=== PATIENT | female | born 1970 | race Caucasian/White ===

== ENCOUNTER → 2017-07-16 | Outpatient (CLI) | payer OTHER ==
--- NOTE | 2017-07-16 11:05 | DIAGNOSTIC IMAGING REPORT ---
CHEST 2 VIEWS ROUTINE CLINICAL HISTORY: 46 years-old Female presenting with COUGH /CHEST PAIN. TECHNIQUE: PA and lateral views of the chest were obtained. COMPARISON: 08/06/2014. FINDINGS: Cardiomediastinal silhouette normal. Lungs and pleural spaces clear. Osseous structures normal. Upper abdomen normal. IMPRESSION: 1. No acute cardiopulmonary disease. Electronically signed by: Israel London M.D. 07/16/2017 11:04 AM Dictated Date/Time: 07/16/2017 11:03 AM
== END | disposition home or self-care (01) ==
LOC: C.RAD1850 10:43
PROVIDERS: ATTEND Family Medicine
DX: R05 Cough (principal); R07.9 Chest pain, unspecified

== ENCOUNTER → 2017-07-20 | Outpatient (CLI) | payer OTHER ==
[2017-07-20 16:15] LABS: BASO % 0.1 %; BASO ABS # 0.01 K/uL (0-0.2); EOS % 0.3 %; EOS ABS # 0.05 K/uL (0-0.5); HEMATOCRIT 42.6 % (37-47); HEMOGLOBIN 14.3 g/dL (12.0-16.0); IG# 0.04 K/uL (0.00-0.02); LYMPH % 31.9 %; LYMPH ABS # 4.64 K/uL (1.2-3.4); MEAN CELL VOLUME 87.5 fL (80-100); MEAN CORPUSCULAR HEMOGLOBIN 29.4 pg (25-34); MEAN CORPUSCULAR HGB CONC 33.6 g/dl (32-36); MEAN PLATELET VOLUME 10.5 fL (7.4-10.4); MONO % 12.5 %; MONO ABS # 1.81 K/uL (0.11-0.59); NEUT % 54.9 %; NEUT ABS # 7.98 K/uL (1.4-6.5); PLATELET COUNT 370 K/uL (130-400); RED CELL DISTRIBUTION WIDTH CV 14.5 % (11.5-14.5); RED CELL DISTRIBUTION WIDTH SD 45.8 fL (36.4-46.3); WHITE BLOOD COUNT 14.53 K/uL (4.8-10.8)
== END | disposition home or self-care (01) ==
LOC: C.LAB 14:25
PROVIDERS: ATTEND Nurse Practitioner Family
DX: R05 Cough (principal); R06.00 Dyspnea, unspecified; K59.00 Constipation, unspecified; R53.83 Other fatigue; E03.9 Hypothyroidism, unspecified

== ENCOUNTER → 2017-07-23 | Outpatient (CLI) | payer OTHER ==
--- NOTE | 2017-07-23 11:17 | DIAGNOSTIC IMAGING REPORT ---
ULTRASOUND OF THE THYROID GLAND CLINICAL HISTORY: Cough and dyspnea. Fatigue. COMPARISON STUDY: No priors. TECHNIQUE: Real-time, grayscale, and color flow sonography of the thyroid gland is performed utilizing a high-frequency linear transducer. Images are reviewed in the transverse and longitudinal planes. FINDINGS: Right lobe: The right lobe of the thyroid gland is normal in size and heterogeneous in echotexture, measuring 4.6 x 2.0 x 1.1 cm. The right lobe appears slightly hyperemic on color imaging. A hypoechoic nodule in the mid to lower pole measures 1.0 x 0.8 x 0.7 cm. Left lobe: The left lobe of the thyroid gland is normal in size and heterogeneous in echotexture, measuring 4.4 x 1.0 x 1.1 cm. The left lobe appears hyperemic on color imaging. A 0.6 x 0.3 x 0.5 cm nodule is seen in the anterior upper pole. Isthmus: The thyroid isthmus is mildly thickened, measuring 0.5 cm in AP diameter. IMPRESSION: 1. The thyroid gland is normal in size and heterogeneous in echotexture. The gland appears hyperemic on color imaging and the appearance suggests thyroiditis. Correlation with serum thyroid function studies will be required. 2. Small bilateral nodules as above. These do not meet sonographic criteria for fine-needle aspiration. Electronically signed by: Phil Murrell M.D. 07/23/2017 11:15 AM Dictated Date/Time: 07/23/2017 11:13 AM
== END | disposition home or self-care (01) ==
LOC: C.ULTR 10:20
PROVIDERS: ATTEND Nurse Practitioner Family
DX: E04.1 Nontoxic single thyroid nodule (principal); F45.8 Other somatoform disorders; R05 Cough; R06.00 Dyspnea, unspecified; R53.83 Other fatigue; Z88.6 Allergy status to analgesic agent